=== PATIENT | female | born 1940 | race Caucasian/White ===

== ENCOUNTER 2021-12-26 20:45 | Observation (INO) ==
[2021-12-27] MEDS: Azithromycin 500 MG in 0.9 % Sodium Chloride 250 ML IVPB SCH ×2 (05:32→09:47)
[2021-12-27] MEDS: cefTRIAXone 1,000 MG in 0.9 % Sodium Chloride Mini Bag 100 ML IVPB SCH ×2 (05:34→09:46)
[2021-12-27 07:15] LABS: Basophils % 0.3 %; Eosinophils # 0.2 K/mcL (0.0-0.6); Eosinophils % 2.6 %; Hematocrit 32.5 % (35.3-44.9); Hemoglobin 10.8 g/dL (11.5-15.4); Immature Granulocytes % 0.6 % (0-4); Lymphocytes # 1.4 K/mcL (0.6-4.6); Lymphocytes % 19.6 %; Mean Corpuscular HGB Conc 33.2 g/dL (31.6-35.5); Mean Corpuscular Hemoglobin 27.5 pg (28.0-33.3); Mean Corpuscular Volume 82.7 fL (83.0-100.0); Mean Platelet Volume 8.5 fL (9.4-12.4); Monocytes # 1.1 K/mcL (0.0-1.3); Monocytes % 15.5 %; Neutrophils # 4.3 K/mcL (1.6-8.9); Platelet Count 322 K/mcL (140-400); Red Blood Count 3.93 M/mcL (3.82-4.97); Red Cell Distribution Width 12.1 % (11.5-14.5); Segmented Neutrophils % 61.4 %
[2021-12-27 09:22] LABS: BUN/Creatinine Ratio 16 (6-26); Blood Urea Nitrogen 9 mg/dL (8-23); Calcium 8.7 mg/dL (8.6-10.3); Carbon Dioxide 27 mEq/L (23-29); Chloride 98 mEq/L (98-107); Glucose 92 mg/dL (70-105); Osmolality,Calculated 272 (280-300); Potassium 3.1 mEq/L (3.5-5.1); Sodium 132 mEq/L (136-145); eGFR For African Americans > 60 (> 60); eGFR For Non-African Americans > 60 (> 60)
[2021-12-27] MEDS: Cefdinir 300 MG CAPSULE PO SCH ×2 (12:08→20:36)
[2021-12-27] MEDS: Multivit/Ca/Min/Fe/FA 1 TAB TABLET PO SCH (12:08)
[2021-12-27] MEDS: Propranolol LA (24 HR) 80 MG CAP.SA.24H PO SCH ×2 (12:08→20:36)
[2021-12-27] MEDS ORDERED: Cholecalciferol (D-3) 1,000 UNIT (25MCG) TABLET PO SCH (18:00)
[2021-12-27] MEDS ORDERED: Artificial Tears SOLN 15 ML BOTTLE BOTH EYES PRN (18:03)
[2021-12-27] MEDS: Gabapentin 300 MG CAPSULE PO SCH (20:36)
[2021-12-27] MEDS ORDERED: Aspirin Enteric Coated 81 MG Tablet PO SCH (21:00)
[2021-12-27] MEDS ORDERED: Melatonin 3 MG TABLET PO SCH (21:00)
[2021-12-27] MEDS ORDERED: Loratadine 10 MG TABLET PO SCH (21:00)
[2021-12-27] MEDS ORDERED: Latanoprost 2.5 ML BOTTLE BOTH EYES SCH (21:00)
[2021-12-28] MEDS ORDERED: *HR* Enoxaparin 40 MG/0.4 ML SYRINGE SQ SCH (06:00)
[2021-12-28 06:38] VITALS: RESP 17
[2021-12-28 07:02] LABS: Basophils % 0.3 %; Eosinophils # 0.2 K/mcL (0.0-0.6); Eosinophils % 2.1 %; Hematocrit 36.7 % (35.3-44.9); Hemoglobin 12.2 g/dL (11.5-15.4); Immature Granulocytes % 0.5 % (0-4); Lymphocytes # 1.5 K/mcL (0.6-4.6); Lymphocytes % 16.4 %; Mean Corpuscular HGB Conc 33.2 g/dL (31.6-35.5); Mean Corpuscular Volume 84.2 fL (83.0-100.0); Mean Platelet Volume 8.5 fL (9.4-12.4); Monocytes # 1.1 K/mcL (0.0-1.3); Monocytes % 12.3 %; Neutrophils # 6.3 K/mcL (1.6-8.9); Platelet Count 359 K/mcL (140-400); Red Blood Count 4.36 M/mcL (3.82-4.97); Red Cell Distribution Width 12.3 % (11.5-14.5); Segmented Neutrophils % 68.4 %; White Blood Count 9.1 K/mcL (4.3-11.1)
[2021-12-28 07:54] LABS: BUN/Creatinine Ratio 13 (6-26); Blood Urea Nitrogen 8 mg/dL (8-23); Calcium 9.3 mg/dL (8.6-10.3); Carbon Dioxide 28 mEq/L (23-29); Chloride 97 mEq/L (98-107); Glucose 96 mg/dL (70-105); Osmolality,Calculated 270 (280-300); Potassium 4.1 mEq/L (3.5-5.1); Sodium 131 mEq/L (136-145); eGFR For African Americans > 60 (> 60); eGFR For Non-African Americans > 60 (> 60)
[2021-12-28 08:28] LABS: Thyroid Stimulating Hormone 1.739 mcIU/mL (0.340-5.600)
[2021-12-28] MEDS ORDERED: lisinopriL 5 MG TABLET PO SCH (09:00)
[2021-12-28] MEDS ORDERED: NON-FORMULARY MEDICATION 1 EACH EACH (Omega-3/Dha/Epa/Fish Oil [Fish Oil 1,000 Mg Softgel] PO SCH (09:00)
[2021-12-28] MEDS ORDERED: Fluticasone Propionate Nasal 50 MCG/SPRAY BOTTLE NS SCH (09:00)
[2021-12-28] MEDS: Propranolol LA (24 HR) 80 MG CAP.SA.24H PO SCH (09:08)
[2021-12-28] MEDS: Gabapentin 300 MG CAPSULE PO SCH (09:10)
[2021-12-28] MEDS: Cefdinir 300 MG CAPSULE PO SCH (09:10)
[2021-12-28] MEDS: Multivit/Ca/Min/Fe/FA 1 TAB TABLET PO SCH (09:10)
[2021-12-28 14:41] VITALS: BP 153/82; PULSE 72; TEMP 98.1; O2SAT 94
[2021-12-31] MEDS ORDERED: ALENDRONATE SODIUM 70 MG PO SCH (09:00)
== END 2021-12-28 17:30 ==
LOC: INPPIK
PROVIDERS: ADMIT Internal Medicine; ATTEND Emergency Medicine